=== PATIENT | male | born 2000 | race Caucasian/White ===

== ENCOUNTER 2024-11-26 01:38 | Emergency (ER) | payer BC ==
[2024-11-26] MEDS: Lidocaine/Epineph/Tetracaine 3 ML Syringe TOP ONE (02:45)
[2024-11-26] MEDS: Lidocaine 1% with EPINEPHrine 1:100,000 10 ML MDV INFILT ONE (02:45)
[2024-11-26] MEDS: Diphtheria,Pertussis(Acell),Tetanus Vaccine 0.5 ML Syringe IM ONE (03:01)
[2024-11-26] MEDS: Bacitracin Oint 1 GM U/D Packet TOP ONE (03:11)
== END 2024-11-26 03:25 | disposition home or self-care (01) ==
LOC: MW.ED 01:38
DX: S01.81XA Laceration without foreign body of other part of head, initial encounter (principal); R04.0 Epistaxis; Z90.49 Acquired absence of other specified parts of digestive tract; W22.8XXA Striking against or struck by other objects, initial encounter; Z23 Encounter for immunization
CPT/HCPCS: 12011; 70450; 72125; 90471; 99284; A9270; 99283